=== PATIENT | male | born 1990 | race Two or more races ===

== ENCOUNTER 2023-05-07 15:36 | Emergency (ER) | payer OTHER ==
[~2023-05-07] VITALS: Ht 172.7 cm; Wt 77.1 kg
[2023-05-07 17:04] VITALS: BP 125/74; TEMP 97.9; O2SAT 99
== END 2023-05-07 17:00 | disposition home or self-care (01) ==
LOC: ER 15:37
DX: R07.9 Chest pain, unspecified (principal)
CPT/HCPCS: 71045-TC